=== PATIENT | male | born 1965 | race African-American/Black ===

== ENCOUNTER 2025-09-03 13:23 | Emergency (ER) | payer OTHER ==
[~2025-09-03] VITALS: Ht 188 cm; Wt 150.0 kg
[~2025-09-03 13:23] MED LIST: COLC0.6T66; DICL75TA5
[2025-09-03 13:26] VITALS: BP 129/78; PULSE 78; RESP 18; TEMP 36.8; O2SAT 100
[2025-09-03 14:22] LABS: BASOPHILS % 0.4 % (0.0-2.0); EOSINOPHILS % 4.8 % (0.0-5.0); HEMATOCRIT. 41.2 % (42.0-52.0); HEMOGLOBIN. 13.8 g/dL (14.0-18.0); LYMPHOCYTES % 26.3 % (20.0-50.0); MEAN PLATELET VOLUME 7.7 fl (7.4-10.4); MONOCYTES % 5.7 % (2.0-8.0); NEUTROPHILS % 62.8 % (40.0-76.0); PLATELET 243 x1000/uL (130-400); RED BLOOD CELL COUNT 4.86 mill/uL (4.7-6.1); RED CELL DISTRIBUTION WIDTH 13.3 % (11.6-14.6)
== END 2025-09-03 16:26 | disposition home or self-care (01) ==
LOC: ER 13:23
DX: R79.9 Abnormal finding of blood chemistry, unspecified (principal)
CPT/HCPCS: 36415; 85025; 99283